=== PATIENT | male | born 1995 | race Caucasian/White ===

== ENCOUNTER 2018-05-06 16:54 | Inpatient (IN) | payer OTHER ==
[~2018-05-06] VITALS: Ht 170.2 cm; Wt 59.0 kg
--- NOTE | 2018-05-06 19:15 | NUR ---
INTAKE ASSESSMENT Pt is A/O X 4.B/P=114/65,HR=68,T=97.9,R=16,O2 SAT =96% AT RA. Pt stated that he has been using 1 gram of Heroin via IV and smoke,on a daily basis for the past one month. Last time he smoked 0.5 mg of Heroin at 1 pm this afternoon.He is currently c/o head and general body aches,has hx of anxiety,depression and bipolar disorder.Mood is sad and depressed,eye contact is poor,hesitating to give answers,stated "I don't feel like talking now".Pt encouraged to verbalized feelings,needs and concerns.Emotional support provided.Speech is clear and easy to understand.Pt is able to ambulate with a steady gait.Pt is in a stable condition to proceed to [facility].
[2018-05-06 20:00] VITALS: BP 122/74
--- NOTE | 2018-05-06 20:00 | NUR ---
ADMISSION NOTE HT=5 FEET; 7 INCHES. MA=216 POUNDS. B/P=114/65,T=97.9.HR=68,R=16,O2 SAT 96% ON ROOM AIR. CIWA=6. Pt is a 23 y/o male admitting to [facility] for medically supervised withdrawal from Heroin. Pt stated that he has been using 1 gram of Heroin via IV and smoke,on a daily basis for the past one month. Last time he smoked 0.5 mg of Heroin at 1 pm this afternoon.Pt stated he began using Heroin at the age of 17 years.He has had periods of sobriety off and on and some times he tried to detox on his own.His longest period of sobriety was for 6 months,starting from October 2017 and lasted upto the first week of March 2018.Pt is a 12th grade graduate,lives with his family in [place]. Works as a apprentice painter hand.Denies any family history of substance abuse.Pt denies having any stress issues.Said he has no problems with his family,friends or job; he was sober for 6 months and was doing well,then relapsed 1 month ago because I became too complacent and thought that I could use successfully.Pt stated that initially he tried to detox on his own but soon realized that he is not getting any success and needs professional help. Pt stated that his friend made arrangements for him to admit to [facility] . He is currently c/o head and general body aches and feeling like he is beginning to start withdrawing. Pt denies any allergies or medical problems.Pt has PMH of Anxiety,Depression and Bipolar disorder.He denies taking any medications at home.PCP is Dr Hawk Corbett.Pt is alert and oriented x 4;skin is intact,warm and dry to touch;breathing is even and non labored,lungs are clear bilaterally;abdomen ia soft and palpable with bowel sounds present in all 4 quadrants.No c/o nausea,vomiting or diarrhea noted.Pt denies any SI/HI/AH/VH.Pt oriented to room and unit;care plan and safety checks initiated,education material provided,unit rules and regulations explained.Pt placed on regular diet,FULL CODE STATUS and has no known allergies to food or medications.All safety measures are in place,bed is locked in the lowest position with side rails up x 2,call ponce is within reach.MD notified of admission,will continue to monitor for safe withdrawals. Substance use: HEROIN Amount: 1 GRAM Frequency: DAILY Length: 1 MONTH Age of first use: 17 YEARS Last usage: 0.5 GRAM VIA SMOKE AT 1300 ON 05-06-18 His longest period of sobriety is 6 months from October 2017 to first week of March 2018 History of seizures: None Past DT's: None PSYCHIATRIC HX: PT HAS HX OF SUICIDE ATTEMPT IN THE PAST.HE ATTEMPTED SUICIDE BY OVERDOSING ON PILLS IN 2013 AND WAS PLACED ON 5150 FOR DANGER TO SELF, IN [facility] WHERE HE STAYED FOR 3 DAYS. Treatment history: [employer] IN 2017 FROM NOVEMBER TO MAY. [facility] IN 2011 FOR 1 WEEK.
[2018-05-06 20:16] LABS: *AMPHETAMINE, URINE NEGATIVE (NEGATIVE); *BARBITURATE, URINE NEGATIVE (NEGATIVE); *CANNABINOID, URINE POSITIVE (NEGATIVE); *COCCAINE, URINE NEGATIVE (NEGATIVE); *OPIATE, URINE POSITIVE (NEGATIVE); *PHENCYCLIDINE SCREEN,URINE NEGATIVE (NEGATIVE)
[2018-05-06] MEDS ORDERED: METHOCARBAMOL 750 MG TABLET PO PRN (21:00)
[2018-05-06] MEDS ORDERED: MAG HYDROX/AL HYDROX/SIMETH 30 ML LIQUID UDC PO PRN (21:00)
[2018-05-06] MEDS ORDERED: ONDANSETRON ODT 4 MG TAB.RAPDIS SL PRN (21:00)
[2018-05-06] MEDS ORDERED: ONDANSETRON 4 MG/2 ML VIAL IM PRN (21:00)
[2018-05-06] MEDS ORDERED: MIRALAX 17 GM POWD.PACK PO PRN (21:00)
[2018-05-06] MEDS ORDERED: LOPERAMIDE HCL 2 MG CAPSULE PO PRN ×2 (21:00)
[2018-05-06] MEDS ORDERED: CLONIDINE HCL 0.1 MG TABLET PO PRN (21:00)
[2018-05-06] MEDS ORDERED: MAGNESIUM HYDROXIDE 30 ML LIQUID UDC PO PRN (21:00)
[2018-05-06] MEDS: diphenhydrAMINE 50 MG CAPSULE PO PRN (21:50)
[2018-05-06] MEDS: ACETAMINOPHEN 325 MG TABLET PO PRN (21:50)
--- NOTE | 2018-05-06 21:51 | NUR ---
PRN MEDS PT C/O GENERALIZED BODY ACHE AND HEADACHE,5/10.ALSO C/O INSOMNIA AND HEARTBURN. PRN MEDS ROBAXIN AND TYLENOL GIVEN ORDERED FOR ACHES AND PAIN. PRN MYLANTA AND BENADRYL GIVEN ORDERED FOR C/O HEARTBURN AND INSOMNIA.WILL MONITOR FOR EFFECTIVENESS.
[2018-05-06 22:00] LABS: BASOPHILS # (AUTO) 0.1 K/uL (0.0-8.0); BASOPHILS % (AUTO) 0.8 % (0.0-2.0); EOSINOPHILS # (AUTO) 0.1 K/uL (0.0-0.7); EOSINOPHILS % (AUTO) 0.7 % (0.0-7.0); HEMATOCRIT 39.3 % (36.7-47.1); HEMOGLOBIN 13.6 g/dL (12.5-16.3); LYMPHOCYTES # (AUTO) 2.8 K/uL (20.0-40.0); LYMPHOCYTES % (AUTO) 38.5 % (20.5-51.5); MEAN CORPUSCULAR HEMOGLOBIN 30.5 uug (23.8-33.4); MEAN CORPUSCULAR HGB CONC 35 g/dL (32.5-36.3); MEAN CORPUSCULAR VOLUME 88.4 fL (73.0-96.2); MONOCYTES # (AUTO) 0.6 K/uL (2.0-10.0); NEUTROPHILS # (AUTO) 3.8 K/uL (1.8-8.9); PLATELET COUNT (AUTO) 285 K/uL (152-348); RED BLOOD CELL COUNT(AUTO) 4.45 MIL/uL (4.06-5.63); WHITE BLOOD COUNT (AUTO) 7.4 K/uL (3.6-10.2)
[2018-05-06 22:13] LABS: ALANINE AMINOTRANSFERASE 21 U/L (16-63); ALKALINE PHOSPHATASE 81 U/L (50-136); AMYLASE 72 U/L (25-115); ASPARTATE AMINOTRANSFERASE 13 U/L (15-37); BILIRUBIN,TOTAL 0.8 mg/dL (0.2-1.0); CARBON DIOXIDE 29 mmol/L (21-32); CHLORIDE 104 mmol/L (98-107); CREATININE 0.8 mg/dL (0.6-1.3); GLUCOSE 111 mg/dL (74-106); LIPASE 146 U/L (73-393); MAGNESIUM 2.1 mg/dL (1.8-2.4); POTASSIUM 3.8 mmol/L (3.5-5.1); TOTAL PROTEIN, SERUM 6.8 g/dL (6.4-8.2); UREA NITROGEN, BLOOD 12 mg/dL (7-18)
[2018-05-06 22:22] LABS: THYROID STIMULATING HORMONE 0.605 mIU/mL (0.358-3.740)
--- NOTE | 2018-05-06 23:00 | NUR ---
PRN F/U PT IS CALM AND RESTING IN BED WITH EYES CLOSED.APPEARS TO BE SLEEPING.NO S/S OF DISTRESS NOTED,BREATHING IS EVEN AND NON LABORED.WILL CONTINUE TO MONITOR.
[2018-05-06 23:08] LABS: ETHANOL < 3 MG/DL (0-0)
[2018-05-07] VITALS: BP 105/64
--- NOTE | 2018-05-07 | NUR ---
COWS DEFERRED PT IS CALM AND RESTING IN BED WITH EYES CLOSED.APPEARS TO BE SLEEPING.NO S/S OF DISTRESS NOTED,BREATHING IS EVEN AND NON LABORED.V/S ARE STABLE.COWS DEFERRED D/T SLEEP.WILL CONTINUE TO MONITOR.
[2018-05-07 04:00] VITALS: BP 101/68
--- NOTE | 2018-05-07 06:52 | NUR ---
END OF SHIFT PRN MEDS GIVEN WERE :TYLENOL,MYLANTA,ROBAXIN AND BENADRYL AND WERE EFFECTIVE.PT SLEPT 10 HOURS,FLUID INTAKE WAS 500 MLS,VOIDED X 1.PT IS STILL RESTING IN BED WITH EYES CLOSED.LAST COWS WAS 6.ALL SAFETY MEASURES IN PLACE WITH CALL CAREY WITHIN REACH.WILL ENDORSE CARE TO AM SHIFT NURSE.
--- NOTE | 2018-05-07 07:21 | NUR ---
Start Of Shift: Patient is a 23 yr old male who was admitted to [facility] yesterday 05/06/18 for a medically supervised withdrawal from Opiates ( heroin). He has not been placed on any taper yet but has PRN medications available for him. He is asleep in bed at this time, breathing even and unlabored, side rails up x2, call light within reach. PRN meds given on PM shift : Tylenol, Mylanta, Robaxin and Benadryl. He has slept for 10+ hours and last COWS was 6. Continue to follow MD plan of care and offer support as needed.
[2018-05-07 08:00] VITALS: BP 116/70
--- NOTE | 2018-05-07 08:00 | NUR ---
COWS 6 Patient is having very mild withdrawals at this time which present with : chills/diaphoresis, extreme lethargy, decreased appetite, irritability/agitation and anxiety.
[2018-05-07] MEDS ORDERED: TUBERCULIN,PURIF.PROT.DERIV. 5 TU/0.1 ML TEST ID ONE (09:00)
[2018-05-07] MEDS: MULTIVITAMINS,THERAPEUTIC TABLET PO SCH (09:00)
[2018-05-07] MEDS ORDERED: METHOCARBAMOL 500 MG TABLET PO PRN (09:15)
--- NOTE | 2018-05-07 10:20 | NUR ---
PPD placed L Arm
--- NOTE | 2018-05-07 11:10 | NUR ---
PRN Subutex 4MG SL given for COWS 12, patients withdrawal symptoms include moderate joint/muscle aches, runny nose, chills/diaphoresis, agitation and decreased appetite. will continue to monitor and reassess
[2018-05-07] MEDS: BUPRENORPHINE HCL 2 MG TAB.SUBL SL PRN ×2 (11:11→16:29)
[2018-05-07] MEDS ORDERED: 3 DAY TAPER BUPRENORPHINE -SERENITY PROTOCOL SL PRN (11:30)
[2018-05-07] MEDS: BUPRENORPHINE HCL 2 MG TAB.SUBL SL SCH ×2 (11:30→21:00)
--- NOTE | 2018-05-07 11:30 | NUR ---
Nursing Note: MD Communication 3 Day Subutex entered per order by Dr Hickman, Patient had already received 4MG PRN dose @ 1100, Pharmacy/ eMar started taper @ 1130, first dose @ 1130 non administered per MD order.
[2018-05-07 12:00] VITALS: BP 120/75
--- NOTE | 2018-05-07 12:00 | NUR ---
PRN Reassess COWS 10 Subutex 4mg SL effective in reducing withdrawal symptoms
--- NOTE | 2018-05-07 12:00 | NUR ---
COWS 10 Patient reports withdrawal symptoms of : stuffy nose, tearing eyes, sneezing, restlessness,achy joints/ muscles, agitation ,mild nausea, chills and diaphoresis.
[2018-05-07] MEDS: ESCITALOPRAM OXALATE 10 MG TABLET PO SCH (13:33)
[2018-05-07 16:00] VITALS: BP 118/87
[2018-05-07] MEDS: HYDROXYZINE PAMOATE 25 MG CAPSULE PO PRN (16:27)
[2018-05-07] MEDS: ACETAMINOPHEN 325 MG TABLET PO PRN (16:28)
[2018-05-07] MEDS: IBUPROFEN 600 MG TABLET PO PRN (16:28)
--- NOTE | 2018-05-07 16:30 | NUR ---
PRN Medications PRN Subutex 4MG SL given for COWS 14 and withdrawal symptoms of increasing severe muscle pain/cramps, restless legs, clammy diaphoretic skin, sensitivity to light and nasal congestion. Robaxin 750mg PO for Myalgia Motrin 600mg PO/ Tylenol 650 MG PO for back/leg pain and muscle spasms will monitor and reassess Addendum: 05/07/18 at 1656 by CARRIE CROCKETT RN Vistaril 50 MG PO also given for increased anxiety/agitation
--- NOTE | 2018-05-07 16:30 | NUR ---
COWS 14 Patient presents with increased severe muscle pain / cramps in muscles/joints and back, clammy diaphoretic skin, flushed face, increased agitation and cravings for drugs , he is shaking and is nauseous and restless. he is isolating and expresses feelings of self loathing. Will continue to monitor closely.
--- NOTE | 2018-05-07 17:30 | NUR ---
PRN reassess Patient states his withdrawal symptoms are improved with the medication , pain level went from 7/10 to 4/10 muscle aches and spasms have improved, anxiety has decreased. continue to monitor
--- NOTE | 2018-05-07 18:56 | NUR ---
End Of Shift : Patient is a 23 yr old male who was admitted to [facility] on 05/06/18 for a medically supervised withdrawal from Opiates ( heroin), he has a previous history of attempted suicide by overdosing on pills in 2013 and was placed on a 5150 hold at the time for danger to self. He presents with poor eye contact and is anxious and irritable, he is isolative and has feelings of low self worth. He is anxious and fearful and states that " My cravings to use drugs will ruin my life if I relapse and I want to be able to enjoy life again without having to use drugs which may one day kill me ". His withdrawal symptoms have included restlessness, shakiness, warm clammy skin, nausea, muscle cramps and feelings of low self worth and cravings to use drugs. He had a fluid intake of 1500ML, 3 voids and 0 BM. His last COWS was 14 @ 1630. Continue to follow MD plan of care and offer support as needed. Endorsed to night time nanny.
--- NOTE | 2018-05-07 19:30 | NUR ---
Start of Shift Note Received a 23 y/o male px, admitted yesterday 05/06/2018 for medically supervised withdrawal from using Heroin. Px was placed on PRN Subutex yesterday, 05/06/2018 then 3 day Subutex taper started today, 05/07/2018. Last reported COWS 14 at 1630 by AM shift nurse. During the rounds at 1930, px is awake inside his room, standing. Px appears depressed, anxious, flat affect with poor eye contact. Px looks disheveled, unshaven and odorous. Some unfinished snacks and drinks noted on top of the bed side table. Px stated my anxiety is about 6/10 and I have body aches of 4/10. Px refused to take pain reliever for his body aches. Px cant recall when was his last BM. Laxatives were suggested. Px refused to take laxatives tonight but he will try to take it tomorrow, 05/08/2018. Bed on lowest position, side rails up 2x, and call light within reach. Well continue to monitor.
[2018-05-07 20:00] VITALS: BP 121/76
--- NOTE | 2018-05-07 21:30 | NUR ---
COWS COWS after half hour of administering Subutex 4 mg SL is 12. Px is observed to be anxious and restless. Sweat noted. Px noted to have stuffy nose. Pupils larger than normal. Yawns 1x on observation. Px stated that his anxiety is still at 6/10. We'll continue to monitor.
[2018-05-08] VITALS: BP 126/78
--- NOTE | 2018-05-08 | NUR ---
COWS During the rounds at 0000, px is still awake, lying fowlers on bed. Px is still observed to be anxious and restless. Px noted to have stuffy nose. Pupils larger than normal. Px stated that his anxiety is still at 6/10 and body aches is mild at 4/10. COWS at this time is 11. We'll continue to monitor.
[2018-05-08] MEDS: diphenhydrAMINE 50 MG CAPSULE PO PRN (00:23)
[2018-05-08] MEDS: HYDROXYZINE PAMOATE 25 MG CAPSULE PO PRN (00:23)
--- NOTE | 2018-05-08 00:23 | NUR ---
PRN medications Px was given Benadryl 50 mg/cap, 1 cap PO for insomnia and Vistaril 25 mg/cap, 2 caps for anxiety. We'll continue to monitor.
--- NOTE | 2018-05-08 01:30 | NUR ---
Reassessment of insomnia Px is still awake after an hour of administration of Benadryl 50 mg and Vistaril 50 mg PO. We'll continue to monitor.
--- NOTE | 2018-05-08 02:42 | NUR ---
Insomnia Px is having hard time sleeping. Px stated that his anxiety is still at 6/10. Clonidine 0.1 mg/tab, 1 tab given PO for anxiety. COWS at this moment is 12. We'll continue to monitor.
[2018-05-08 04:00] VITALS: BP 110/71
--- NOTE | 2018-05-08 04:00 | NUR ---
COWS deferred COWS deferred due to the px is asleep, to assess if the px is awake per doctor's order. We'll continue to monitor.
--- NOTE | 2018-05-08 07:10 | NUR ---
End of Shift Note During the shift, px had hard time sleeping. Px refused laxative last night. At 0023, Benadryl 50 mg given PO and Vistaril 50 mg given PO for insomnia. They were not effective. At 0242, Clonidine 0.1 mg given PO for anxiety and px stated that he will talk to the psychiatrist this morning to give him Seroquel to help him sleep the next night. Px oral intake is 600 ml, voided 1x with No BM. Px slept for 3 hours. At 0630, px is asleep on bed in fowlers position. Bed on lowest position, side rails up 2x, and call light within reach. Well continue to monitor. Px endorsed to AM shift nurse.
[2018-05-08 08:00] VITALS: BP 102/59
--- NOTE | 2018-05-08 08:03 | NUR ---
Start of Shift Pt. is a 23 y/o male admitted for the medically managed withdrawal from Opiates. Pt. was placed on a 3 day subutex taper to manage his withdrawal symptoms. Endorse pt.'s behavior from previous shift as anxious and restless. Endorse pt. was unable to sleep last night after PRN Clonidine, Benadryl, and Vistaril were given last night. Pt. was only able to sleep 3 hours. Received pt. in room . Pt. in bed with eyes closed. No signs of SOB or acute distress noted. Pt. presents with dark rings around his eyes. Room is cluttered with pt. belongings and food containers. Last COW's of 12. Safety measures in place. Will continue to monitor pt.'s behavior for safety.
[2018-05-08] MEDS: MULTIVITAMINS,THERAPEUTIC TABLET PO SCH (09:44)
[2018-05-08] MEDS: ESCITALOPRAM OXALATE 10 MG TABLET PO SCH (09:44)
[2018-05-08] MEDS: BUPRENORPHINE HCL 2 MG TAB.SUBL SL SCH ×3 (09:44→21:31)
[2018-05-08 10:12] LABS: HEPATITIS B SURFACE AG Negative (Negative)
[2018-05-08 12:00] VITALS: BP 111/68
--- NOTE | 2018-05-08 16:41 | NUR ---
Client was prompted to attend group counseling sessions.
[2018-05-08 16:59] VITALS: BP 112/70
--- NOTE | 2018-05-08 19:00 | NUR ---
End of Shift note Pt. is a 23 y/o male admitted for the medically managed withdrawal from Opiates. Pt. was placed on a 3 day subutex taper to manage his withdrawal symptoms. Pt. compliant with medication regiment and treatment plan. Pt. noted as continually anxious and restless throughout shift. Pt. reported not being able to sleep at all during the previous shift and is requesting to see psych MD to possible have seroquel ordered as a sleep aid. Psych MD aware and spoke with the pt. regarding his medications. Room is cluttered with pt. belongings and food containers. Encouraged pt. to maintain a hygienic person and personal space. Last COW's of 14 at 1600. Safety measures in place. Will endorse pt.'s behavior and care to oncoming shift.
[2018-05-08 20:00] VITALS: BP 119/77
--- NOTE | 2018-05-08 20:00 | NUR ---
Start of Shift Note Received a 23 y/o male px, admitted 05/06/2018 for medically supervised withdrawal from using Heroin. Px was placed on 3 day Subutex taper started on 05/07/2018. Last reported COWS 14 by AM shift nurse. During the rounds at 2000, px is awake on bed lying fowlers, watching TV. Px appears depressed, anxious, flat affect with good eye contact. Px looks disheveled, unshaven and odorous. Some unfinished snacks and drinks noted on top of the bed side table. Px stated my anxiety is about 3/10 tonight and I have body aches of 4/10 nad H/A of 6/10. Px refused to take laxatives again tonight. Px stated "I will try to take them tomorrow." Bed on lowest position, side rails up 2x, and call light within reach. Well continue to monitor.
[2018-05-08] MEDS: ACETAMINOPHEN 325 MG TABLET PO PRN (21:28)
[2018-05-08] MEDS: IBUPROFEN 600 MG TABLET PO PRN (21:28)
[2018-05-08] MEDS: QUETIAPINE FUMARATE 100 MG TABLET PO SCH (21:28)
--- NOTE | 2018-05-08 21:28 | NUR ---
PRN medication for pain Px complained of H/A 6/10 and generalized body aches of 4/10. Px received Tylenol 325 mg/tab, 2 tabs PO and Motrin 600 mg/tab, 1 tab PO as PRN medication for pain. We'll continue to monitor.
--- NOTE | 2018-05-08 22:00 | NUR ---
COWS 12 Px is awake on bed in long sitting position. On assessment, px has piloerection, reported mild anxiety with chills, mild body aches, pupils are larger than normal, and mild bilateral hand tremors. We'll continue to monitor.
--- NOTE | 2018-05-08 22:30 | NUR ---
Reassessment of pain Px stated "My H/A is gone but I still have mild body aches."
[2018-05-09] VITALS: BP 116/73
[2018-05-09 04:00] VITALS: BP 119/78
--- NOTE | 2018-05-09 07:10 | NUR ---
End of Shift Note During the shift at 8, px received Motrin 600 mg PO and Tylenol 650 for H/A and body aches. They were effective. Px refused laxatives again tonight for his constipation. Px oral intake is 1000 ml, voided 3x with No BM. Px slept for 6.5 hours. At 0630, px is asleep on bed in right side lying position. Bed on lowest position, side rails up 2x, and call light within reach. Well continue to monitor. Px endorsed to AM shift nurse.
--- NOTE | 2018-05-09 07:40 | NUR ---
START OF SHIFT Rcvd endorse from ongoing nurse, client is laying in bed, in a position covered from head to toe with multiple blankets, he is a/o x 4, client speech is pressured, sweat noted on face, clammy skin on both arms, goosebump, enlarged pupils, tremors, and difficulty concentrating. Client's room has all his clean and dirty clothes scattered around the floor, primary nurse cleaned the floor and his bedside; educate client to maintain room clean and free of clutter to prevent fall, encouragement needed. Client stated, "My whole body hurts, I have a headache, I'm so tired, I could not sleep last night, I'm nauseous, abdominal cramps, and have really no appetite." Encourage client to increase PO fluid as tolerated to facilitate detox. Encourage client to attend group therapy to learn skills to maintain sober. PRN Motrin 600mg PO for FRANCO, Tylenol 650mg PO for body aches, noted effective. Last COWS 12 @ 2000. Bed in lowest/locked position. Side rails x 2 up, call light within reach. Will continue to monitor.
[2018-05-09 08:30] VITALS: BP 106/64
[2018-05-09] MEDS: ESCITALOPRAM OXALATE 10 MG TABLET PO SCH (08:52)
[2018-05-09] MEDS: MULTIVITAMINS,THERAPEUTIC TABLET PO SCH (08:52)
--- NOTE | 2018-05-09 08:55 | NUR ---
COWS 16 Client presents with anxiety/agitation, tremors, enlarged pupils, runny nose, generalized body aches, sweats on extremities, decreased appetite, feelings of despair, and fatigue. Subutex 2mg SL administered. Call light within reach. Encourage client to increase PO fluid to facilitated detox.
[2018-05-09] MEDS ORDERED: BUPRENORPHINE HCL 2 MG TAB.SUBL SL SCH (09:00)
--- NOTE | 2018-05-09 10:15 | NUR ---
Zero induration noted @ PPD site on L forearm
[2018-05-09 12:08] VITALS: BP 129/69
--- NOTE | 2018-05-09 12:57 | NUR ---
COWS 9 Client presents with anxious mood, irritable, pupils are larger than normal size, moist eyes, clammy skin, tremors felt, yawning, and restless. Will continue to monitor. Call light within reach.
--- NOTE | 2018-05-09 13:35 | NUR ---
Therapist prompted client to attend twice daily group therapy sessions.
[2018-05-09 16:55] VITALS: BP 126/67
--- NOTE | 2018-05-09 19:00 | NUR ---
END OF SHIFT Endorse client to incoming nurse, client is in group therapy, a/o x 4. Client continues to present with anxiety, enlarged pupil, moist eyes, clammy skin, tremors felt, not observed, yawning, and decreased appetite. Client consumes 50-75% of meals. adequate PO fluid intake 1846mL, void x 5, stool x 1. Client is compliant with group therapy. Client completed 3 say Subutex taper, last COWS 9 @ 1600. Client is scheduled for discharge to [facility] tomorrow am.
--- NOTE | 2018-05-09 19:15 | NUR ---
Start of Shift Note: Patient is a 23 y.o male admitted on 05/06/18 for medically supervised withdrawal from heroin use. Patient is alert & oriented x4. He has a flat affect, anxious mood, reports chills & noted with fine tremors. Pt completed his Subutex taper and is scheduled to be discharge tomorrow. Pt verbalized readiness but reported that his anxious about tomorrows discharge. Patient is going to [facility]. Last COWS is 9. No PRN medications received during day shift. Encourage pt to increase fluid intake. Educated pt of current plan of care for the night and medication regimen. All needs attended & met. Safety measures in place. Will continue to monitor patient.
[2018-05-09 20:00] VITALS: BP 121/77
[2018-05-09] MEDS: HYDROXYZINE PAMOATE 25 MG CAPSULE PO PRN (20:38)
--- NOTE | 2018-05-09 20:38 | NUR ---
PRN Vistaril Patient is anxious about tomorrow's discharge. PRN Vistaril administered as ordered. Will monitor for effectiveness of medication.
[2018-05-09] MEDS: QUETIAPINE FUMARATE 100 MG TABLET PO SCH (20:39)
--- NOTE | 2018-05-09 21:38 | NUR ---
PRN Reassessment Patient verbalized decreased in anxiety after 1 hour of medication administration. Pt in bed and watching TV at this time. He appears calm & comfortable. Safety measures in place. Will continue to monitor patient.
--- NOTE | 2018-05-10 | NUR ---
Vitals/COWS Deferred Patient refused Vitals at this time. Pt asleep in bed and appears calm and comfortable. No shortness of breath noted. Unable to assess COWS at this time d/t pt asleep. Safety measures in place. Will monitor.
[2018-05-10] MEDS ORDERED: ESCI10TA PO (00:31)
--- NOTE | 2018-05-10 04:00 | NUR ---
Vitals/COWS Deferred Patient refused Vitals at this time. in bed with eyes close. He appears calm & comfortable at this time. No shortness of breath noted. Unable to assess COWS at this time d/t pt asleep. Safety measures in place. Will monitor.
--- NOTE | 2018-05-10 07:05 | NUR ---
End of Shift Note: Patient is a 23 y.o male admitted on 05/06/18 for medically supervised withdrawal from heroin use. During my shift, presented with a flat affect, anxiety, chills & fine tremors. He completed his Subutex taper and is discharging today to [facility]. He was anxious last night of his discharge but was provided reassurance, he understands the importance of going to treatment. Last COWS is 6. He received PRN vistaril for anxiety and was effective. Continue to encourage pt to increase fluid intake for hydration and to attend group activities to learn coping skills. He slept for a total of 6 hours. Fluid intake 1291 ml, Voided 2x with 1x bowel movement. All needs attended. Safety measures in place. Will endorse pt to day shift nurse.
--- NOTE | 2018-05-10 07:19 | NUR ---
Start Of Shift: Patient is a 23 yr old male who was admitted to [facility] on 05/06/18 for a medically supervised withdrawal from heroin ( smoke/IV) He has completed a 3 day Subutex taper without complications, per slide forming machine tender report patient still presents as anxious with intermittent insomnia, restlessness and racing thought. PRN Vistaril was given on PM shift, he slept for 6 hours and last COWS was 6. He is asleep in bed at this time, breathing even and unlabored. He is to be discharged this AM to [facility]. Continue to follow MD plan for discharge.
[2018-05-10 08:00] VITALS: BP 105/62
[2018-05-10] MEDS: MULTIVITAMINS,THERAPEUTIC TABLET PO SCH (09:33)
[2018-05-10] MEDS: ESCITALOPRAM OXALATE 10 MG TABLET PO SCH (09:33)
--- NOTE | 2018-05-10 09:40 | NUR ---
Discharge note: Patient has signed and dated all discharge papers, all personal belongings returned to Patient. Vital signs stable : BP 105/62, HR 58, T 98.6, O2 99%, RR 18 Patient states no SI/HI upon discharge, wristband removed and patient ambulated off the unit and was picked up by private car " [facility] " for transport to [facility].
== END 2018-05-10 09:42 | disposition home or self-care (01) | DRG 895 ==
LOC: SRC 18:23
PROVIDERS: ADMIT Family Medicine Addiction Medicine; ATTEND Family Medicine Addiction Medicine
PROC: HZ2ZZZZ Detoxification Services for Substance Abuse Treatment (ICD-10-PCS; principal; 2018-05-06)
PROC: HZ41ZZZ Group Counseling for Substance Abuse Treatment, Behavioral (ICD-10-PCS; 2018-05-07)
DX: F11.23 Opioid dependence with withdrawal (principal); F31.32 Bipolar disorder, current episode depressed, moderate; F12.90 Cannabis use, unspecified, uncomplicated
CPT/HCPCS: 36415; 70030-TC; 80307; 80349; 80361; 83690; 83735; 84443; 85025; 86580; 86592; 86705; 86803; 87340; 87806; 93005; G0480; Q0163